=== PATIENT | male | born 1995 | race Caucasian/White ===

== ENCOUNTER 2019-08-05 22:00 | Emergency (ER) | payer SELFPAY ==
[~2019-08-05] VITALS: Ht 165.1 cm; Wt 0.5 kg
[2019-08-06] MEDS ORDERED: LIDOCAINE HCL/EPINEPHRINE 1%-EPI 1:100,000 20 ML VIAL INFIL NR (00:15)
[2019-08-06] MEDS ORDERED: IBUPROFEN 600MG TABLET PO NR (00:15)
[2019-08-06] MEDS ORDERED: BACITRACIN 15GM TUBE TOP NR (00:15)
[2019-08-06] MEDS ORDERED: ACETAMINOPHEN 325MG TABLET PO NR (00:15)
[2019-08-06] MEDS ORDERED: TETANUS, DIPHTHERIA, PERTUSSIS VAC/PF 0.5ML (>7YR OLD) IM ONE (00:15)
[2019-08-06] MEDS ORDERED: HYDROCODONE/ACETAMINOPHEN 5/325MG TABLET PO ONE (00:30)
[2019-08-06] MEDS ORDERED: AMOXICILLIN/POTASSIUM CLAVULANATE 875/125MG TAB PO ONE (03:45)
[2019-08-06 04:01] VITALS: BP 126/84
== END 2019-08-06 04:05 | disposition home or self-care (01) ==
LOC: ER 22:00
DX: S81.812A Laceration without foreign body, left lower leg, initial encounter (principal); F17.200 Nicotine dependence, unspecified, uncomplicated; F15.10 Other stimulant abuse, uncomplicated; I49.9 Cardiac arrhythmia, unspecified; W54.0XXA Bitten by dog, initial encounter; Y93.89 Activity, other specified; Y92.89 Other specified places as the place of occurrence of the external cause; Y99.8 Other external cause status
CPT/HCPCS: 90471; 90715; 99283; J3490; Z7610